=== PATIENT | male | born 2000 | race African-American/Black ===

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

== ENCOUNTER 2022-12-18 00:49 | Emergency (ER) | payer MEDICAID, OTHER ==
[~2022-12-18] VITALS: Ht 193 cm; Wt 87.0 kg
[2022-12-18 00:57] VITALS: O2SAT 100
[2022-12-18 01:15] VITALS: TEMP 98
[2022-12-18] MEDS ORDERED: ASPIRIN 81MG TABLET PO ONE (01:30)
[2022-12-18 01:41] LABS: BASOPHILS % 0.3 % (0.0-2.0); EOSINOPHILS % 1.2 % (0.0-5.0); HEMATOCRIT. 44.2 % (42.0-52.0); HEMOGLOBIN. 15.1 g/dL (14.0-18.0); LYMPHOCYTES % 63.8 % (20.0-50.0); MEAN CORPUSCULAR HEMOGLOBIN 31.3 pg (28.0-32.0); MEAN CORPUSCULAR HGB CONC 34.1 g/dL (31.0-37.0); MEAN CORPUSCULAR VOLUME 91.9 fL (80.0-94.0); MONOCYTES % 9.7 % (2.0-8.0); PLATELET 269 x1000/uL (130-400); RED BLOOD CELL COUNT 4.81 mill/uL (4.7-6.1); RED CELL DISTRIBUTION WIDTH 13.2 % (11.6-14.6); WHITE BLOOD COUNT 6.5 x1000/uL (4.5-11.0)
[2022-12-18] MEDS ORDERED: LORAZEPAM 0.5MG TABLET PO ONE (01:45)
[2022-12-18 03:13] VITALS: BP 104/65; PULSE 78; RESP 12
[2022-12-18 03:18] LABS: ALBUMIN 4.4 g/dL (3.4-5.0); ASPARTATE AMINOTRANSFERASE 18 IU/L (15-37); BILIRUBIN TOTAL 0.8 mg/dL (0.1-1.0); CALCIUM 8.7 mg/dL (8.5-10.1); CARBON DIOXIDE 26 mEq/L (21-32); CHLORIDE 104 mEq/L (98-107); CREATININE 1.2 mg/dL (0.6-1.3); GLUCOSE 122 mg/dL (70-105); POTASSIUM 3.3 mEq/L (3.5-5.1); PROTEIN TOTAL 8.3 g/dL (6.0-8.3); SODIUM 139 mEq/L (136-145); TROPONIN I HIGH SENSITIVITY 5 ng/L (<78); UREA NITROGEN BLOOD 13 mg/dL (7-21)
[2022-12-18 03:22] LABS: NT PRO B-TYPE NATRIURETIC PEP < 5 pg/mL (5-125)
[2022-12-18 03:32] LABS: INDEX HEMOLYSI 1 (1-3); INDEX ICTERIC 1 (1-4); INDEX LIPEMIC 1 (1-3)
[2022-12-18 03:35] LABS: ALANINE AMINOTRANSFERASE 28 IU/L (13-61)
== END 2022-12-18 03:10 | disposition home or self-care (01) ==
LOC: ER 00:49
DX: T40.715A Adverse effect of cannabis, initial encounter (principal); R00.2 Palpitations; F12.10 Cannabis abuse, uncomplicated; X58.XXXA Exposure to other specified factors, initial encounter
CPT/HCPCS: 80053; 83880; 85025; 84484; 36415; 71045; 93005; 99285; Z7610

== ENCOUNTER 2023-12-09 13:56 | Inpatient (IN) | payer OTHER ==
[~2023-12-09] VITALS: Ht 193 cm; Wt 100.7 kg
[2023-12-09 14:03] VITALS: O2SAT 94
[2023-12-09] MEDS: NALOXONE HCL 1MG/ML 2ML VIAL IV ONE (14:56)
[2023-12-09] MEDS: ONDANSETRON HCL 4MG/2ML INJ IV ONE (15:08)
[2023-12-09] MEDS: SODIUM CHLORIDE 0.9% 1,000 ML IV ONE (15:08)
[2023-12-09] MEDS: SODIUM CHLORIDE 0.9% 1000ML BAG (SEPSIS BOLUS) IV ONE (16:11)
[2023-12-09] MEDS: PIPERACILLIN/TAZO 3.375G/50ML 50 ML IV ONE (16:11)
[2023-12-09 16:15] LABS: BG CARBOXYHEMOGLOBIN 1.2 % (0.5-1.5); BG DEOXYHEMOGLOBIN 3.9 % (0.0-5.0); BG FRACTION INSPIRED OXYGEN 21; BG METHEMOGLOBIN 0.1 % (0.5-1.5); BG OXYHEMOGLOBIN 94.8 % (94.0-98.0); BG PCO2 45.3 mmHg (35.0-48.0); BG PH 7.342 (7.350-7.450); BG PO2 80.8 mmHg (83.0-108.0); BG SAMPLE SITE RIGHT RADIAL; BG TOTAL HEMOGLOBIN 16.6 g/dL (13.5-17.5); BG VENT MODE ROOM AIR
[2023-12-09 16:20] LABS: HEMATOCRIT. 49.5 % (42.0-52.0); HEMOGLOBIN. 16.6 g/dL (14.0-18.0); MEAN CORPUSCULAR HEMOGLOBIN 31.6 pg (28.0-32.0); MEAN CORPUSCULAR HGB CONC 33.4 g/dL (31.0-37.0); MEAN CORPUSCULAR VOLUME 94.4 fL (80.0-94.0); MEAN PLATELET VOLUME 6.9 fl (7.4-10.4); PLATELET 236 x1000/uL (130-400); RED BLOOD CELL COUNT 5.25 mill/uL (4.7-6.1); RED CELL DISTRIBUTION WIDTH 15.2 % (11.6-14.6); WHITE BLOOD COUNT 7.6 x1000/uL (4.5-11.0)
[2023-12-09 16:23] LABS: DIFFERENTIAL COMMENT 1
[2023-12-09 16:26] LABS: CHLORIDE 106 mEq/L (98-107); POTASSIUM 4.2 mEq/L (3.5-5.1); SODIUM 139 mEq/L (136-145)
[2023-12-09 16:27] LABS: CALCIUM 9.1 mg/dL (8.7-10.4); CARBON DIOXIDE 31 mEq/L (21-32)
[2023-12-09 16:32] LABS: CREATININE 1.2 mg/dL (0.6-1.3); GLUCOSE 81 mg/dL (70-105); UREA NITROGEN BLOOD 13 mg/dL (9-23)
[2023-12-09 16:34] LABS: ACETAMINOPHEN < 2 ug/mL (10-30); ALANINE AMINOTRANSFERASE 108 IU/L (10-49); ALBUMIN 4.4 g/dL (3.2-4.8); ASPARTATE AMINOTRANSFERASE 66 IU/L (<34); BILIRUBIN DIRECT 0.2 mg/dL (<=3.0)
[2023-12-09 16:35] LABS: BILIRUBIN TOTAL 0.5 mg/dL (0.1-1.0); ETHANOL BLOOD < 10 mg/dL (<10); TROPONIN I HIGH SENSITIVITY 54 ng/L (3.0-53)
[2023-12-09] MEDS: VANCOMYCIN 1G PREMIX 200 ML IV ONE (16:42)
[2023-12-09 17:11] LABS: PLATELET ESTIMATE NORMAL
[2023-12-09] MEDS: ASPIRIN 325MG EC TABLET PO ONE (17:24)
[2023-12-09 18:25] LABS: CLARITY URINE CLEAR (CLEAR); COLOR URINE YELLOW (YELLOW); GLUCOSE URINE NEGATIVE (NEGATIVE); KETONES URINE 1+ (NEGATIVE); LEUKOCYTE ESTERASE URINE NEGATIVE (NEGATIVE); NITRITE URINE NEGATIVE (NEGATIVE); OCCULT BLOOD URINE NEGATIVE (NEGATIVE); PH URINE 5.5 (4.5-8.0); PROTEIN URINE TRACE (NEGATIVE); SPECIFIC GRAVITY URINE 1.013 (1.005-1.030); UROBILINOGEN URINE 0.2 E.U./dL (0.2-1.0)
[2023-12-09 18:34] LABS: *AMPHETAMINES SCREEN URINE NEGATIVE (NEGATIVE); *BARBITURATES SCREEN URINE NEGATIVE (NEGATIVE); *BENZODIAZEPINES SCREEN URINE NEGATIVE (NEGATIVE); *COCAINE SCREEN URINE NEGATIVE (NEGATIVE); CANNABINOID URINE SCREEN PRESUMPTIVE POSITIVE (NEGATIVE); METHADONE URINE SCREEN NEGATIVE (NEGATIVE); OPIATES URINE SCREEN NEGATIVE (NEGATIVE); PHENCYCLIDINE URINE SCREEN NEGATIVE (NEGATIVE)
[2023-12-09 18:35] LABS: ECSTASY MDMA SCREEN URINE NEGATIVE (NEGATIVE)
[2023-12-09 18:38] LABS: BACTERIA URINE NONE SEEN; RBC URINE NONE SEEN /hpf (0-2); SQUAMOUS EPITHELIAL CELL URINE RARE /lpf (RARE/1+); WBC URINE 0-2 /hpf (0-2)
[2023-12-09 19:11] LABS: PHOSPHORUS 2.2 mg/dL (2.5-4.9)
[2023-12-09] MEDS ORDERED: CLONIDINE 0.1MG TABLET PO PRN (19:15)
[2023-12-09] MEDS ORDERED: MAGNESIUM/ALUMINUM HYDROXIDE/SIMETHICONE 30ML UDC PO PRN (19:15)
[2023-12-09] MEDS ORDERED: GUAIFENESIN 200MG/10ML SUGAR FREE UDC PO PRN (19:15)
[2023-12-09] MEDS ORDERED: DOCUSATE SODIUM 100MG CAPSULE PO PRN (19:15)
[2023-12-09] MEDS ORDERED: IPRATROPIUM/ALBUTEROL 0.5-3(2.5)MG/3ML NEB HHN PRN (19:15)
[2023-12-09] MEDS ORDERED: ACETAMINOPHEN 325MG TABLET PO PRN (19:15)
[2023-12-09] MEDS ORDERED: BENZONATATE 100MG CAPSULE PO PRN (19:30)
[2023-12-09] MEDS: CEFTRIAXONE 2GM/50ML 50 ML IV SCH (19:49)
[2023-12-09] MEDS: DEXT 5%/LACTATED RINGERS 1,000 ML IV SCH (19:50)
[2023-12-09 20:22] LABS: D-DIMER 1.18 mg/L FEU (<0.50); PARTIAL THROMBOPLASTIN TIME 22.2 sec (23.4-31.0); PROTHROMBIN TIME 11.5 sec (9.6-11.0)
[2023-12-09 20:49] LABS: CREATINE KINASE MB FRACTION 2.3 ng/mL (0.5-3.6)
[2023-12-09] MEDS ORDERED: AZITHROMYCIN 250 MG in DEXT 5% WATER 250 ML IV SCH (21:00)
[2023-12-09 21:45] VITALS: BP 109/94; PULSE 97; RESP 18; TEMP 36.7516
[2023-12-09] MEDS: POTASSIUM PHOSPHATE 15 MMOL in DEXT 5% WATER 245 ML IV NR (22:29)
[2023-12-09] MEDS: AZITHROMYCIN 500MG/250ML 250 ML IV SCH (22:29)
[2023-12-09] MEDS: PANTOPRAZOLE SODIUM 40 MG/VIAL IV SCH (22:40)
[2023-12-09] MEDS: MELATONIN 3MG TABLET PO SCH (22:42)
[2023-12-10] VITALS (9 sets, daily range): BP systolic 92–131; BP diastolic 63–79; PULSE 79–98; RESP 6–21; TEMP 36.16956–37.05852; O2SAT 88–98
[2023-12-10 07:03] LABS: CHLORIDE 107 mEq/L (98-107); POTASSIUM 3.8 mEq/L (3.5-5.1); SODIUM 140 mEq/L (136-145)
[2023-12-10 07:04] LABS: CALCIUM 8.8 mg/dL (8.7-10.4); CARBON DIOXIDE 27 mEq/L (21-32); CREATINE KINASE MB FRACTION 1.5 ng/mL (0.5-3.6)
[2023-12-10 07:05] LABS: TROPONIN I HIGH SENSITIVITY 17 ng/L (3.0-53)
[2023-12-10 07:06] LABS: TRIGLYCERIDE 38 mg/dL (0-150)
[2023-12-10 07:07] LABS: UREA NITROGEN BLOOD 9 mg/dL (9-23)
[2023-12-10 07:08] LABS: ALANINE AMINOTRANSFERASE 60 IU/L (10-49); T4 FREE 1.67 ng/dL (0.89-1.76)
[2023-12-10 07:09] LABS: GLUCOSE 107 mg/dL (70-105); THYROID STIMULATING HORMONE < 0.10 uIU/mL (0.55-4.78)
[2023-12-10 07:10] LABS: ALBUMIN 3.7 g/dL (3.2-4.8); ASPARTATE AMINOTRANSFERASE 31 IU/L (<34); LDL CHOLESTEROL 73 mg/dL (5-100)
[2023-12-10 07:11] LABS: BILIRUBIN DIRECT 0.2 mg/dL (<=3.0); BILIRUBIN TOTAL 0.6 mg/dL (0.1-1.0); CHOLESTEROL 130 mg/dL (<200); CREATINE KINASE 204 IU/L (46-171); HDL CHOLESTEROL 44 mg/dL (>55); PROTEIN TOTAL 6.1 g/dL (6.0-8.3)
[2023-12-10 07:30] LABS: BASOPHILS % 0.1 % (0.0-2.0); EOSINOPHILS % 0.2 % (0.0-5.0); HEMATOCRIT. 42.4 % (42.0-52.0); LYMPHOCYTES % 13.8 % (20.0-50.0); MEAN CORPUSCULAR HEMOGLOBIN 31.2 pg (28.0-32.0); MEAN CORPUSCULAR HGB CONC 33.1 g/dL (31.0-37.0); MEAN CORPUSCULAR VOLUME 94.3 fL (80.0-94.0); MEAN PLATELET VOLUME 7.5 fl (7.4-10.4); MONOCYTES % 4.5 % (2.0-8.0); NEUTROPHILS % 81.4 % (40.0-76.0); PLATELET 189 x1000/uL (130-400); RED CELL DISTRIBUTION WIDTH 15.8 % (11.6-14.6); WHITE BLOOD COUNT 8.7 x1000/uL (4.5-11.0)
[2023-12-10] MEDS: ACETAMINOPHEN 325MG TABLET PO PRN (08:58)
[2023-12-10] MEDS: MULTIVITAMINS,THER W-MINERALS TABLET PO SCH (08:58)
[2023-12-10] MEDS: FOLIC ACID 1MG TABLET PO SCH (08:58)
[2023-12-10] MEDS: THIAMINE HCL 100MG TABLET PO SCH (08:58)
[2023-12-10] MEDS: KETOROLAC 15MG/ML VIAL IV PRN (12:26)
[2023-12-10] MEDS: ONDANSETRON HCL 4MG/2ML INJ IV PRN (15:11)
[2023-12-10 16:11] LABS: HEMATOCRIT 40.2 % (42.0-52.0); HEMOGLOBIN 13.5 g/dL (14.0-18.0)
== END 2023-12-10 15:40 | disposition left against medical advice (07) | DRG 917 ==
LOC: ER 13:56 → EDBEDREQ 15:01 → EDBEDREQSVC 17:04 → 5EST 20:50
PROVIDERS: ADMIT Internal Medicine; ATTEND Internal Medicine
DX: T40.411A Poisoning by fentanyl or fentanyl analogs, accidental (unintentional), initial encounter (principal); G92.8 Other toxic encephalopathy; J69.0 Pneumonitis due to inhalation of food and vomit; J96.01 Acute respiratory failure with hypoxia; J68.0 Bronchitis and pneumonitis due to chemicals, gases, fumes and vapors; R04.2 Hemoptysis; T40.721A Poisoning by synthetic cannabinoids, accidental (unintentional), initial encounter; R74.01 Elevation of levels of liver transaminase levels; F11.10 Opioid abuse, uncomplicated; F12.10 Cannabis abuse, uncomplicated; Z20.822 Contact with and (suspected) exposure to COVID-19; Z53.29 Procedure and treatment not carried out because of patient's decision for other reasons; E66.9 Obesity, unspecified; Z68.27 Body mass index [BMI] 27.0-27.9, adult; Y92.89 Other specified places as the place of occurrence of the external cause
CPT/HCPCS: 36415; 36600; 71045; 80048; 80061; 80076; 80305; 80307; 80320; 80329; 81003; 82375; 82550; 82553; 82805; 83605; 83735; 83880; 84100; 84145; 84439; 84443; 84484; 85014; 85018; 85025; 85379; 87426; 93005; 99291; J0456; J0696; J1885; J2310; J2405; J2470; J2543; J3370; J3490; J7030; J7060; G0480

== ENCOUNTER 2024-02-10 07:07 | Emergency (ER) | payer OTHER ==
[~2024-02-10] VITALS: Ht 188 cm; Wt 106.0 kg
[2024-02-10 07:09] VITALS: O2SAT 100
[2024-02-10 07:39] VITALS: TEMP 36.94740
[2024-02-10 08:02] LABS: BASOPHILS % 0.3 % (0.0-2.0); HEMATOCRIT. 42.4 % (42.0-52.0); LYMPHOCYTES % 47.8 % (20.0-50.0); MEAN CORPUSCULAR HEMOGLOBIN 30.5 pg (28.0-32.0); MEAN CORPUSCULAR HGB CONC 32.9 g/dL (31.0-37.0); MEAN CORPUSCULAR VOLUME 92.7 fL (80.0-94.0); MEAN PLATELET VOLUME 7.4 fl (7.4-10.4); MONOCYTES % 10.3 % (2.0-8.0); NEUTROPHILS % 39.6 % (40.0-76.0); PLATELET 244 x1000/uL (130-400); RED BLOOD CELL COUNT 4.58 mill/uL (4.7-6.1); RED CELL DISTRIBUTION WIDTH 14.5 % (11.6-14.6); WHITE BLOOD COUNT 4.5 x1000/uL (4.5-11.0)
[2024-02-10 08:05] LABS: CHLORIDE 109 mEq/L (98-107); POTASSIUM 3.3 mEq/L (3.5-5.1); SODIUM 145 mEq/L (136-145)
[2024-02-10 08:06] LABS: CALCIUM 9.4 mg/dL (8.7-10.4); CARBON DIOXIDE 30 mEq/L (21-32)
[2024-02-10 08:11] LABS: CREATININE 1.2 mg/dL (0.6-1.3); GLUCOSE 80 mg/dL (70-105); UREA NITROGEN BLOOD 11 mg/dL (9-23)
[2024-02-10 08:25] LABS: ETHANOL BLOOD < 10 mg/dL (<10)
[2024-02-10 08:26] LABS: ACETAMINOPHEN < 2 ug/mL (10-30)
[2024-02-10 08:40] LABS: CLARITY URINE CLEAR (CLEAR); COLOR URINE YELLOW (YELLOW); GLUCOSE URINE NEGATIVE (NEGATIVE); KETONES URINE NEGATIVE (NEGATIVE); LEUKOCYTE ESTERASE URINE NEGATIVE (NEGATIVE); NITRITE URINE NEGATIVE (NEGATIVE); OCCULT BLOOD URINE NEGATIVE (NEGATIVE); PROTEIN URINE NEGATIVE (NEGATIVE); SPECIFIC GRAVITY URINE 1.005 (1.005-1.030); UROBILINOGEN URINE 0.2 E.U./dL (0.2-1.0)
[2024-02-10 09:01] LABS: *AMPHETAMINES SCREEN URINE NEGATIVE (NEGATIVE); *BARBITURATES SCREEN URINE NEGATIVE (NEGATIVE); *BENZODIAZEPINES SCREEN URINE NEGATIVE (NEGATIVE); *COCAINE SCREEN URINE NEGATIVE (NEGATIVE); METHADONE URINE SCREEN NEGATIVE (NEGATIVE)
[2024-02-10 09:02] LABS: CANNABINOID URINE SCREEN PRESUMPTIVE POSITIVE (NEGATIVE); ECSTASY MDMA SCREEN URINE NEGATIVE (NEGATIVE); OPIATES URINE SCREEN NEGATIVE (NEGATIVE); PHENCYCLIDINE URINE SCREEN NEGATIVE (NEGATIVE)
[2024-02-10 10:08] VITALS: BP 144/86; PULSE 106; RESP 19; O2SAT 99
== END 2024-02-10 10:09 | disposition home or self-care (01) ==
LOC: ER 07:13
DX: R00.0 Tachycardia, unspecified (principal)
CPT/HCPCS: 36415; 80048; 80305; 80307; 80320; 80329; 81003; 85025; 93005; 99284; G0480

== ENCOUNTER 2024-02-24 15:57 | Emergency (ER) | payer OTHER ==
[~2024-02-24] VITALS: Ht 177.8 cm; Wt 103.0 kg
[2024-02-24 15:58] VITALS: O2SAT 99
[2024-02-24 16:36] VITALS: BP 143/87; PULSE 92; RESP 22; TEMP 37.05852; O2SAT 99
[2024-02-24 17:03] LABS: CLARITY URINE CLEAR (CLEAR); COLOR URINE YELLOW (YELLOW); GLUCOSE URINE 1+ (NEGATIVE); KETONES URINE NEGATIVE (NEGATIVE); LEUKOCYTE ESTERASE URINE NEGATIVE (NEGATIVE); NITRITE URINE NEGATIVE (NEGATIVE); OCCULT BLOOD URINE NEGATIVE (NEGATIVE); PROTEIN URINE NEGATIVE (NEGATIVE); SPECIFIC GRAVITY URINE 1.027 (1.005-1.030); UROBILINOGEN URINE 0.2 E.U./dL (0.2-1.0)
[2024-02-24 17:16] LABS: *AMPHETAMINES SCREEN URINE NEGATIVE (NEGATIVE); *BARBITURATES SCREEN URINE NEGATIVE (NEGATIVE); *BENZODIAZEPINES SCREEN URINE PRESUMPTIVE POSITIVE (NEGATIVE); *COCAINE SCREEN URINE NEGATIVE (NEGATIVE)
[2024-02-24 17:17] LABS: BASOPHILS % 0.3 % (0.0-2.0); EOSINOPHILS % 0.2 % (0.0-5.0); HEMOGLOBIN. 14.9 g/dL (14.0-18.0); LYMPHOCYTES % 39.8 % (20.0-50.0); MEAN CORPUSCULAR HEMOGLOBIN 31.7 pg (28.0-32.0); MEAN PLATELET VOLUME 7.7 fl (7.4-10.4); NEUTROPHILS % 52.7 % (40.0-76.0); PLATELET 235 x1000/uL (130-400); RED BLOOD CELL COUNT 4.68 mill/uL (4.7-6.1); RED CELL DISTRIBUTION WIDTH 14.8 % (11.6-14.6); WHITE BLOOD COUNT 4.7 x1000/uL (4.5-11.0)
[2024-02-24 17:17] LABS: CANNABINOID URINE SCREEN PRESUMPTIVE POSITIVE (NEGATIVE); ECSTASY MDMA SCREEN URINE NEGATIVE (NEGATIVE); METHADONE URINE SCREEN NEGATIVE (NEGATIVE); OPIATES URINE SCREEN NEGATIVE (NEGATIVE); PHENCYCLIDINE URINE SCREEN NEGATIVE (NEGATIVE)
[2024-02-24 17:18] LABS: BACTERIA URINE NONE SEEN; RBC URINE NONE SEEN /hpf (0-2); SQUAMOUS EPITHELIAL CELL URINE RARE /lpf (RARE/1+); WBC URINE NONE SEEN /hpf (0-2)
[2024-02-24 17:26] LABS: CHLORIDE 106 mEq/L (98-107); INR 1.2; PROTHROMBIN TIME 13.1 sec (9.6-11.0); SODIUM 141 mEq/L (136-145)
[2024-02-24 17:27] LABS: CALCIUM 9.5 mg/dL (8.7-10.4); CARBON DIOXIDE 27 mEq/L (21-32)
[2024-02-24 17:32] LABS: CREATININE 1.2 mg/dL (0.6-1.3); GLUCOSE 206 mg/dL (70-105); UREA NITROGEN BLOOD 13 mg/dL (9-23)
[2024-02-24 17:57] LABS: TROPONIN I HIGH SENSITIVITY < 4 ng/L (3.0-53)
[2024-02-24] MEDS ORDERED: NALO4SPR BOTHNSTRLS (18:06)
== END 2024-02-24 19:05 | disposition home or self-care (01) ==
LOC: ER 15:57
DX: T40.2X1A Poisoning by other opioids, accidental (unintentional), initial encounter (principal); R42 Dizziness and giddiness; F17.210 Nicotine dependence, cigarettes, uncomplicated; F12.10 Cannabis abuse, uncomplicated; F15.10 Other stimulant abuse, uncomplicated; X58.XXXA Exposure to other specified factors, initial encounter
CPT/HCPCS: 36415; 71045; 80048; 80305; 81003; 84484; 85025; 93005; 99285